=== PATIENT | female | born 1990 | race Caucasian/White ===

== ENCOUNTER 2016-08-12 07:36 | Emergency (ER) | payer OTHER ==
[~2016-08-12 07:36] MED LIST: ANTIVERT PO; ANXIETY MED; BACTRIM DS TABL1 TA1 PO; BENTYL10 M1 PO; BENTYL10 MG PO; CLARITIN10 M3; CLINDAMYCIN HC300 MG PO; DICLOFENAC PO; DIFLUCAN PO; DOXYCYCLINE HY100 M1 PO; ELIMITE60 GM TOP; FLEXERIL10 MG PO; GABAPENTIN300 MG PO; HYDROCODON-ACE1 EAC5 PO; IBUPROFEN800 MG PO; MEDI-MECLIZINE25 M1 PO; NO MEDICATIONS; NORCO 10-325 TA1 TAB PO; PHENERGAN25 M1 PO; PHENERGAN25 MG PO; PREDNISONE PO; TRIAMCINOLONE A15 G2 TOP; TYLENOL #3 PO; VIBRAMYCIN100 M1 PO; VOLTAREN75 MG PO; [UNRECOGNIZED DRUG - OTHER]
[2016-08-12] MEDS ORDERED: CLONAZEPAM0.125 MG (07:44)
== END 2016-08-12 09:14 | disposition home or self-care (01) ==
LOC: SED 07:36
DX: L02.214 Cutaneous abscess of groin (principal); L03.314 Cellulitis of groin; F17.210 Nicotine dependence, cigarettes, uncomplicated
CPT/HCPCS: 10060; 99283